=== PATIENT | male | born 1995 | race Caucasian/White ===

== ENCOUNTER 2016-04-09 14:24 | Outpatient (CLI) | payer BC ==
[2016-01-23 00:05] VITALS: O2SAT 97
== END 2016-04-09 14:25 | disposition home or self-care (01) ==
LOC: CONVCARE 14:24
PROVIDERS: ATTEND Orthopaedic Surgery
DX: S52.202D Unspecified fracture of shaft of left ulna, subsequent encounter for closed fracture with routine healing (principal)
CPT/HCPCS: 73090